=== PATIENT | female | born 1990 | race Caucasian/White ===

== ENCOUNTER 2019-07-08 15:19 | Outpatient (CLI) | payer BC, SELFPAY ==
--- NOTE | ~2019-07-08 | US_ITS ---
US soft tissue head and neck 07/08/2019 15:42 Indication: Lymphadenopathy. Palpable abnormality. Procedure: High-resolution ultrasound of the posterior left neck at the skull base Comparison: No prior studies for comparison. Findings: There is a oval hypoechoic mass with echogenic hilum and internal vascularity measuring 1.7 x 1.4 x 0.4 cm, compatible with a lymph node. This corresponds to the area of palpable abnormality. Impression: 1: Normal-appearing lymph node corresponding to the area of palpable concern in the posterior left ne ck, likely reactive. Reviewed, dictated and finalized at location A. Impression: 1: Normal-appearing lymph node corresponding to the area of palpable concern in the posterior left neck, likely reactive.
== END 2019-07-08 15:20 | disposition home or self-care (01) ==
LOC: ANHIMG 15:23
PROVIDERS: PCP Internal Medicine; Visit Provider Internal Medicine
DX: R59.1 Generalized enlarged lymph nodes (principal)
CPT/HCPCS: 76536

== ENCOUNTER 2019-07-17 10:55 | Outpatient (CLI) | payer BC, SELFPAY ==
[2019-07-17 13:19] LABS: Blood Urea Nitrogen 14 mg/dL (7-17); Carbon Dioxide 26 mmol/L (22-30); Chloride 104 mmol/L (98-107); Sodium 138 mmol/L (137-145)
[2019-07-17 13:20] LABS: Basophils Percent Auto 0.6 % (0.2-1.2); Calcium 9.8 mg/dL (8.4-10.2); Eosinophils Absolute Auto 0.2 K/mm3 (0-0.3); Eosinophils Percent Auto 2.3 % (0-4.4); Estimated Glomerular Filt Rate > 60; Glucose 90 mg/dL (65-105); Hematocrit 41.6 % (37.0-47.0); Hemoglobin 13.5 g/dL (12.0-15.0); Immature Granulocyte Absolute 0.02 K/mm3 (0.00-0.031); Immature Granulocyte Percent A 0.3 % (0-0.5); Lymphocytes Absolute Auto 1.96 K/mm3 (0.9-3.2); Lymphocytes Percent Auto 29.6 % (18.3-44.2); Mean Corpuscular HGB Conc 32.5 g/dl (32-36); Mean Corpuscular Hemoglobin 29.4 pg (26-34); Mean Corpuscular Volume 90.6 fl (80-100); Mean Platelet Volume 12.9 fl (7.4-10.4); Monocytes Absolute Auto 0.9 K/mm3 (0.1-0.6); Neutrophils Absolute Auto 3.5 K/mm3 (1.3-6.7); Neutrophils Percent Auto 53.2 % (45.5-73.1); Platelet Count Result 216 k/mm3 (150-375); Red Blood Count 4.59 M/mm3 (4.2-5.4); Red Cell Distribution Width 12.5 % (11.5-14.5); White Blood Count 6.6 K/mm3 (4.5-10.0)
[2019-07-17 14:50] LABS: Monoscreen Negative (Negative); Negative Monotest Control Negative (Negative); Positive Monotest Control Positive (Positive)
== END 2019-07-17 10:56 | disposition home or self-care (01) ==
LOC: ANHWCLAB 10:58
PROVIDERS: PCP Internal Medicine; Visit Provider Nurse Practitioner
DX: R50.9 Fever, unspecified (principal)
CPT/HCPCS: 36415; 80048; 85025; 86308